=== PATIENT | female | born 1985 | race Caucasian/White ===

== ENCOUNTER 2016-03-04 18:27 | Emergency (ER) | payer OTHER ==
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
[2016-03-04] MEDS ORDERED: Sodium Chloride 0.9% 1,000 ML PRIMARY IV ONE (19:07)
[2016-03-04] MEDS ORDERED: ONDANSETRON 4 MG/2 ML VIAL IVP ONE (19:07)
[2016-03-04] MEDS ORDERED: KETOROLAC 30 MG/1 ML VIAL IVP ONE (19:07)
[2016-03-04 19:08] LABS: BILIRUBIN,URINE NEGATIVE (NEG); CLARITY,URINE CLEAR (CLEAR); GLUCOSE, URINE (UA) NEGATIVE (NEG); LEUKOCYTE ESTERASE ,URINE NEGATIVE (NEG); NITRATE,URINE NEGATIVE (NEG); OCCULT BLOOD,URINE NEGATIVE (NEG); PROTEIN,URINE NEGATIVE (NEG); UROBILINOGEN,URINE 0.2 EU/dL (0.2)
[2016-03-04 19:09] LABS: URINE SAMPLE TYPE VOIDED SPECIMEN
[2016-03-04 19:36] LABS: BASOPHILS # (AUTO) 0.03 10*3/UL; BASOPHILS % (AUTO) 0.3 % (0-1); EOSINOPHILS % (AUTO) 1.4 % (0-8); HEMOGLOBIN 13.3 g/dL (12.0-16.0); IMM GRAN % (AUTO) 0.1 % (0-5); IMM GRAN# (AUTO) 0.01 10*3/UL; LYMPHOCYTES % (AUTO) 31.9 % (10-50); MEAN CORPUSCULAR HEMOGLOBIN 29.4 PG (27-31); MEAN CORPUSCULAR HGB CONC 33.3 g/dL (33-37); MEAN PLATELET VOLUME 10.9 FL (7.4-12.2); MONOCYTES # (AUTO) 0.48 10*3/UL (0.3-0.8); MONOCYTES % (AUTO) 4.5 % (5-15); NEUTROPHILS # (AUTO) 6.58 10*3/UL; NEUTROPHILS % (AUTO) 61.8 % (50-80); PLATELET MORPHOLOGY COMMENT NORMAL MORPHOLOGY (NORM); RED BLOOD COUNT 4.52 10^6/uL (4.20-5.40); WHITE BLOOD COUNT 10.65 10^3/uL (4.8-10.8)
[2016-03-04 19:46] LABS: ASPARTATE AMINO TRANSFERASE 16 IU/L (8-39); BILIRUBIN,TOTAL 0.4 mg/dL (0.3-1.2); BLOOD UREA NITROGEN 12 mg/dL (7-22); CALCIUM 10.1 mg/dL (8.7-10.7); CHLORIDE 104 meq/L (98-112); EST GLOMERULAR FILTRATION > 60 (>60 ml/min/1.73m(2)); GLUCOSE 86 mg/dL (78-110); POTASSIUM 3.9 meq/L (3.8-5.2); SODIUM 141 meq/L (135-145); TOTAL PROTEIN 7.4 g/dL (6.1-8.0)
--- NOTE | 2016-03-04 20:09 | DI ---
CHEST X-RAY WITH ABDOMINAL SERIES, 03/04/2016 7:08 PM : Clinical History: Right costovertebral angle tenderness. PA CHEST X-RAY: Previous Exam: 11/24/2006. There is no acute soft tissue or bony abnormality. There is no free air under the diaphragms. Heart s ize is normal. Lungs are clear. Mediastinal structures are normal. There are no pulmonary nodules. Reading: Normal PA chest x-ray. ABDOMINAL SERIES: KUB and upright abdomen films are submitted. There are no soft tissue or bony abnormalities. Bowel ga s pattern, psoas margins, and flank stripes are normal. There is no free air or fluid. There are no a bnormal radiodensities. There are 2 radiodensities on each side of the pelvis and these represent baldo gical clips secondary to a tubal ligation procedure. These were visible on the CT scan of the abdomen and pelvis from 04/02/2015. Reading: Normal abdominal series.
[2016-03-04 22:58] VITALS: RESP 16; TEMP 97.6
== END 2016-03-04 20:55 | disposition home or self-care (01) ==
LOC: ER 18:27
DX: M54.5 Low back pain (principal); R11.0 Nausea
CPT/HCPCS: 74022; 80053; 81003; 85025; 96361; 96374; 96375; 99283 ×2; J1885; J2405; J7030

== ENCOUNTER 2016-04-06 15:06 | Emergency (ER) | payer OTHER ==
[2016-04-06] MEDS ORDERED: ONDANSETRON 4 MG/2 ML VIAL IVP ONE (15:20)
[2016-04-06] MEDS ORDERED: NORMAL SALINE 10 ML SYRINGE FLUSH IVP PRN (15:20)
[2016-04-06] MEDS ORDERED: Sodium Chloride 0.9% 1,000 ML PRIMARY IV ONE (15:20)
[2016-04-06] MEDS ORDERED: MORPHINE SULFATE 4 MG/1 ML IVP ONE (15:21)
[2016-04-06 15:25] VITALS: RESP 18; TEMP 98.8
[2016-04-06 15:45] LABS: BASOPHILS # (AUTO) 0.02 10*3/UL; BASOPHILS % (AUTO) 0.2 % (0-1); HEMATOCRIT 41.1 % (37.0-47.0); HEMOGLOBIN 14.2 g/dL (12.0-16.0); IMM GRAN % (AUTO) 0.2 % (0-5); IMM GRAN# (AUTO) 0.02 10*3/UL; LYMPHOCYTES # (AUTO) 1.07 10*3/uL; LYMPHOCYTES % (AUTO) 9.2 % (10-50); MEAN CORPUSCULAR HEMOGLOBIN 30.4 PG (27-31); MEAN CORPUSCULAR HGB CONC 34.5 g/dL (33-37); MEAN PLATELET VOLUME 10.6 FL (7.4-12.2); MONOCYTES # (AUTO) 0.43 10*3/UL (0.3-0.8); MONOCYTES % (AUTO) 3.7 % (5-15); NEUTROPHILS # (AUTO) 9.93 10*3/UL; NEUTROPHILS % (AUTO) 85.7 % (50-80); RDW COEFFICIENT OF VARIATION 13.2 % (11.5-14.5); RED BLOOD COUNT 4.67 10^6/uL (4.20-5.40); WHITE BLOOD COUNT 11.59 10^3/uL (4.8-10.8)
[2016-04-06 15:50] LABS: PLATELET MORPHOLOGY COMMENT NORMAL MORPHOLOGY (NORM)
[2016-04-06 15:57] LABS: AMYLASE 48 U/L (30-110); ASPARTATE AMINO TRANSFERASE 15 IU/L (8-39); BILIRUBIN,TOTAL 0.6 mg/dL (0.3-1.2); BLOOD UREA NITROGEN 12 mg/dL (7-22); BUN/CREATININE RATIO 17.14 (6-20); C-REACTIVE PROTEIN 1.3 mg/dL (0.0-0.9); CALCIUM 8.7 mg/dL (8.7-10.7); CHLORIDE 108 meq/L (98-112); CREATININE 0.7 mg/dL (0.50-1.20); EST GLOMERULAR FILTRATION > 60 (>60 ml/min/1.73m(2)); GLUCOSE 91 mg/dL (78-110); POTASSIUM 3.9 meq/L (3.8-5.2); SODIUM 140 meq/L (135-145); TOTAL PROTEIN 6.9 g/dL (6.1-8.0)
[2016-04-06 16:35] LABS: BILIRUBIN,URINE NEGATIVE (NEG); CLARITY,URINE CLEAR (CLEAR); GLUCOSE, URINE (UA) NEGATIVE (NEG); LEUKOCYTE ESTERASE ,URINE MODERATE (NEG); NITRATE,URINE NEGATIVE (NEG); OCCULT BLOOD,URINE Trace-intact (NEG); PROTEIN,URINE NEGATIVE (NEG)
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
[2016-04-06 16:39] LABS: BACTERIA,URINE FEW; RBC,URINE 0-1 /hpf; SQUAMOUS EPITHELIAL CELL,UR MODERATE; URINE SAMPLE TYPE CLEAN CATCH URINE
--- NOTE | 2016-04-06 16:49 | DI ---
HISTORY: Generalized abdominal pain with diarrhea and nausea for 1 day. COMPARISON: None available. TECHNIQUE: Contiguous axial enhanced images of the abdomen and pelvis were obtained from the lung ba ses through the ischial tuberosities. The images were then submitted for interpretation. FINDINGS: The heart size is normal, and the lung bases are clear. The liver and spleen are normal in size and contour and demonstrate no focal abnormalities. There ar e no calcified gallstones identified. There is a prominent intra- and extra hepatic tree with minima l inflammatory changes in the region of the pancreatic head. This can be seen in pancreatitis. No f illing defect in the ducts. The kidneys are in anatomic position. There is no evidence of renal boy culi, hydronephrosis, or solid renal masses. The visualized vascular structures are normal. There are inflammatory changes in the gastric mucosa and in the small and large bowel which can be se en in gastroenteritis and colitis due to infection or inflammatory etiology. No perforation. No abs cess. There is evidence of a 4 cm right ovarian cyst. IMPRESSION: 1. There are inflammatory changes in the gastric mucosa and in the small and large bowel which can be seen in gastroenteritis and colitis due to infection or inflammatory etiology. Please correlate wit h history. No perforation. No abscess. 2. There is a prominent intra- and extra hepatic tree with minimal inflammatory changes in the region of the pancreatic head. This can be seen in pancreatitis. No filling defect in the ducts. 3. Evidence of a 4 cm right ovarian cyst. 4. No other acute findings. NOTIFICATION: The above findings were phoned to La Stern in the Radiology Department on 03/19 at 07:00 PM EST.
== END 2016-04-06 17:14 | disposition home or self-care (01) ==
LOC: ER 15:06
DX: K52.9 Noninfective gastroenteritis and colitis, unspecified (principal); N39.0 Urinary tract infection, site not specified; R19.7 Diarrhea, unspecified; R11.0 Nausea
CPT/HCPCS: 36415; 74177; 80053; 81001; 81003; 82150; 83690; 84703; 85025; 86140; 87077; 87088; 87186; 96361; 96374; 96375; 99283; J2270; J2405; J7030

== ENCOUNTER → 2016-06-18 | Outpatient (CLI) | payer OTHER ==
--- NOTE | 2016-06-18 09:07 | DI ---
US ABDOMEN LIMITED,06/18/2016 7:34 AM: Clinical History: Lesion of the right lobe of the liver. Previous Exam: October 20, 2008 August 30, 2013 MRI abdomen Findings: Multiple grayscale and color Doppler sonographic images are obtained through the abdomen and, and dem onstrate a 4.0 x 2.7 x 4.4 cm in poorly circumscribed heterogeneous area of hyperechogenicity within the posterior segment of the right lobe of the liver. There is no cystic mass. Visualized portions of the pancreas are unremarkable. The common bile duct measures 8 mm. The patient is status post cholecystectomy. The right kidney is normal measuring 11.1 cm in length. Impression: 1. Slightly hyperechoic area within the posterior segment of the right lobe of the liver this corresp onds with an area of mixed hypodensity within the right lobe of the liver. This also corresponds with the abnormality seen on the MRI from 2013, and has not changed significantly in size. These findings are most consistent with a benign process. The appearance on MRI is most consistent with focal nodul ar hyperplasia.
== END ==
LOC: US 07:31
PROVIDERS: ATTEND Nurse Practitioner Family
DX: K76.89 Other specified diseases of liver (principal)
CPT/HCPCS: 76705